=== PATIENT | female | born 1995 | race American Indian/Alaskan Native ===

== ENCOUNTER 2020-11-03 11:34 | Emergency (ER) | payer SELFPAY ==
[2020-11-03] MEDS ORDERED: ONDANSETRON 4 MG ODT TAB PO ONE (12:34)
[2020-11-03] MEDS ORDERED: KETOROLAC 30 MG/1 ML INJ IV ONE (13:23)
[2020-11-03] MEDS ORDERED: SODIUM CHLORIDE 0.9% 1000 ML 1,000 ML IV ONE (13:23)
[2020-11-03] MEDS ORDERED: FAMOTIDINE 20 MG/2 ML INJ IV ONE (13:23)
[2020-11-03 13:33] LABS: Basophils % (Auto) 0.4 % (0.0-1.8); Eosinophils % (Auto) 0.2 % (0.0-4.3); Hematocrit 46.7 % (30.3-42.9); Hemoglobin 15.8 gm/dl (10.1-14.3); Lymphocytes # (Auto) 1.6 K/mm3 (1.2-5.4); Lymphocytes % (Auto) 21.7 % (13.4-35.0); Mean Corpuscular HGB Conc 34 % (30-34); Mean Corpuscular Volume 93 fl (79-97); Monocytes # (Auto) 0.5 K/mm3 (0.0-0.8); Monocytes % (Auto) 6.5 % (0.0-7.3); Platelet Count 209 K/mm3 (140-440); Red Blood Count 4.99 M/mm3 (3.65-5.03); Red Cell Distribution Width 13.7 % (13.2-15.2)
[2020-11-03 13:37] LABS: HCG Qualitative,Urine Negative (Negative)
[2020-11-03 13:38] LABS: Bilirubin,Urine NEG (Negative); Blood,Urine NEG (Negative); Color,Urine Yellow (Yellow); Mucus,Urine FEW /HPF; Protein,Urine <15 mg/dL mg/dL (Negative); Urobilinogen,Urine < 2.0 mg/dL (<2.0)
[2020-11-03 13:49] LABS: Alanine Aminotransferase 18 units/L (7-56); Albumin 4.4 g/dL (3.9-5); Blood Urea Nitrogen 6 mg/dL (7-17); Calcium 9.4 mg/dL (8.4-10.2); Hemolysis Index 10
[2020-11-03] MEDS ORDERED: ONDANSETRON 4 MG/2 ML INJ ONE (13:51)
[2020-11-03 13:53] LABS: BUN/Creatinine Ratio 9
[2020-11-03] MEDS ORDERED: ONDANSETRON 4 MG/2 ML INJ IV ONE (13:57)
--- NOTE | 2020-11-03 14:30 | Emergency Department Report ---
Vomiting/Diarrhea - HPI Chief Complaint: Nausea/Vomiting/Diarrhea Stated Complaint: VOMITING BLOOD Time Seen by Provider: 11/03/20 12:45 Duration: 1 Day Severity: moderate Nausea/Vomiting Severity: None Pain Location: Epigastric Pain Severity: Mild Symptoms: Yes Able to Tolerate Fluids, Yes Recent Unusual Foods, No Watery Diarrhea, No Bloody diarrhea, No Fever, No Recent Untreated Water, No Recent use of Antibiotics, No Family w/ Similar Symptoms, No Contacts w/ Similar Symptoms, No Rash, No Hematuria, No Recent URI Symptoms ED Review of Systems ROS: Stated complaint: VOMITING BLOOD Other details as noted in HPI Comment: All other systems reviewed and negative ED Past Medical Hx - Past Medical History Previous Medical History?: Yes Hx Psychiatric Treatment: (anxiety, ADHD) - Surgical History Past Surgical History?: Yes Additional Surgical History: T&A - Social History Smoking Status: Never Smoker Substance Use Type: Marijuana - Medications Home Medications: Home Medications Medication Instructions Recorded Confirmed Last Taken Type Famotidine [Pepcid] 20 mg PO BID #40 tablet 11/03/20 Unknown Rx Ondansetron [Zofran ODT TAB] 8 mg PO Q8HR #20 tab.rapdis 11/03/20 Unknown Rx Vomiting Diarrhea Exam - Exam General: Vital signs noted. No distress. Alert and acting appropriately. HEENT: Yes Moist Mucous Membranes, No Pharyngeal Erythema, No Pharyngeal Exudates, No Rhinorrhea, No Conjuctival Injection, No Frontal Tenderness, No Maxillary Tenderness Neck: No Adenopathy, No Rigidity Lungs: Yes Clear Lung Sounds, Yes Good Air Exchange, No Wheezes, No Stridor, No Cough, No Nasal Flaring, No Retractions, No Use of Accessory Muscles Heart exam: Regular: Yes, Murmur: No, Tachycardia: No Abdomen: Tenderness: No, Peritoneal Signs: No, Distention: No, Hyperactive Bowel sounds: No Skin exam: Rash: No, Edema: No, Normal turgor: Yes Neurologic: Alert and oriented, no deficits. Musculoskeletal: Unremarkable. ED Course Vital Signs 11/03/20 11/03/20 11:48 14:18 Pulse Rate 62 88 Respiratory 16 18 Rate Blood Pressure 119/76 238/148 [Right] O2 Sat by Pulse 97 98 Oximetry ED Medical Decision Making - Lab Data Result diagrams: 11/03/20 12:38 11/03/20 12:38 Laboratory Last Values WBC 7.2 K/mm3 (4.5-11.0) 11/03/20 12:38 RBC 4.99 M/mm3 (3.65-5.03) 11/03/20 12:38 Hgb 15.8 gm/dl (10.1-14.3) H 11/03/20 12:38 Hct 46.7 % (30.3-42.9) H 11/03/20 12:38 MCV 93 fl (79-97) 11/03/20 12:38 MCH 32 pg (28-32) 11/03/20 12:38 MCHC 34 % (30-34) 11/03/20 12:38 RDW 13.7 % (13.2-15.2) 11/03/20 12:38 Plt Count 209 K/mm3 (140-440) 11/03/20 12:38 Lymph % (Auto) 21.7 % (13.4-35.0) 11/03/20 12:38 [place] % (Auto) 6.5 % (0.0-7.3) 11/03/20 12:38 Eos % (Auto) 0.2 % (0.0-4.3) 11/03/20 12:38 Baso % (Auto) 0.4 % (0.0-1.8) 11/03/20 12:38 Lymph # (Auto) 1.6 K/mm3 (1.2-5.4) 11/03/20 12:38 [place] # (Auto) 0.5 K/mm3 (0.0-0.8) 11/03/20 12:38 Eos # (Auto) 0.0 K/mm3 (0.0-0.4) 11/03/20 12:38 Baso # (Auto) 0.0 K/mm3 (0.0-0.1) 11/03/20 12:38 Seg Neutrophils % 71.2 % (40.0-70.0) H 11/03/20 12:38 Seg Neutrophils # 5.1 K/mm3 (1.8-7.7) 11/03/20 12:38 Sodium 138 mmol/L (137-145) 11/03/20 12:38 Potassium 4.1 mmol/L (3.6-5.0) 11/03/20 12:38 Chloride 102.5 mmol/L (98-107) 11/03/20 12:38 Carbon Dioxide 24 mmol/L (22-30) 11/03/20 12:38 Anion Gap 16 mmol/L 11/03/20 12:38 BUN 6 mg/dL (7-17) L 11/03/20 12:38 Creatinine 0.7 mg/dL (0.6-1.2) 11/03/20 12:38 Estimated GFR > 60 ml/min 11/03/20 12:38 BUN/Creatinine Ratio 9 % 11/03/20 12:38 Glucose 95 mg/dL (65-100) 11/03/20 12:38 Calcium 9.4 mg/dL (8.4-10.2) 11/03/20 12:38 Total Bilirubin 0.30 mg/dL (0.1-1.2) 11/03/20 12:38 AST 17 units/L (5-40) 11/03/20 12:38 ALT 18 units/L (7-56) 11/03/20 12:38 Alkaline Phosphatase 82 units/L (35-129) 11/03/20 12:38 Total Protein 7.1 g/dL (6.3-8.2) 11/03/20 12:38 Albumin 4.4 g/dL (3.9-5) 11/03/20 12:38 Albumin/Globulin Ratio 1.6 % 11/03/20 12:38 Lipase 17 units/L (13-60) 11/03/20 12:38 Urine Color Yellow (Yellow) 11/03/20 13:15 Urine Turbidity Clear (Clear) 11/03/20 13:15 Urine pH 8.0 (5.0-7.0) H 11/03/20 13:15 Ur Specific [place] 1.017 (1.003-1.030) 11/03/20 13:15 Urine Protein <15 mg/dl mg/dL (Negative) 11/03/20 13:15 Urine Glucose (UA) Neg mg/dL (Negative) 11/03/20 13:15 Urine Ketones Neg mg/dL (Negative) 11/03/20 13:15 Urine Blood Neg (Negative) 11/03/20 13:15 Urine Nitrite Neg (Negative) 11/03/20 13:15 Ur Reducing Substances Not Reportable 11/03/20 13:15 Urine Bilirubin Neg (Negative) 11/03/20 13:15 Urine Ictotest Not Reportable 11/03/20 13:15 Urine Urobilinogen < 2.0 mg/dL (<2.0) 11/03/20 13:15 Ur Leukocyte Esterase Neg (Negative) 11/03/20 13:15 Urine WBC (Auto) 1.0 /HPF (0.0-6.0) 11/03/20 13:15 Urine RBC (Auto) 2.0 /HPF (0.0-6.0) 11/03/20 13:15 U Epithel Cells (Auto) 3.0 /HPF (0-13.0) 11/03/20 13:15 Urine Mucus Few /HPF 11/03/20 13:15 Urine HCG, Qual Negative (Negative) 11/03/20 13:15 - Medical Decision Making This 25-year-old female presenting with acute onset of nausea and vomiting. Patient received IV fluids, meds in the ED. Upon reassessment patient reports feeling much better and states she feels 110%. Vomiting was resolved. Discussed follow-up with primary care physician. Discussed alcohol cessation. Discussed soft fluid diet times 1 week. Patient is in no acute distress so respiratory distress. She was on instructions and will follow-up. - Differential Diagnosis Gastritis, gastroenteritis, UTI Critical care attestation.: If time is entered above; I have spent that time in minutes in the direct care of this critically ill patient, excluding procedure time. ED Disposition Clinical Impression: Gastritis, Gastric pain Disposition: DC-01 TO HOME OR SELFCARE Is pt being admited?: No Does the pt Need Aspirin: No Condition: Stable Instructions: Gastritis, Adult, [id number] Additional Instructions: Make sure to follow up with the primary care physician as discussed. Take all your medications as you've been prescribed. If you have any worsening symptoms or develop new symptoms please return to ED immediately. Prescriptions: Famotidine [Pepcid] 20 mg PO BID #40 tablet Ondansetron [Zofran ODT TAB] 8 mg PO Q8HR #20 tab.rapdis Referrals: PRIMARY CARE, [Primary Care Provider] - 3-[address] [facility] [place] [Outside] - 3-5 Days [facility] [Outside] - 3-5 Days Forms: Work/School Release Form(ED) Time of Disposition: 15:13
[2020-11-03 15:15] VITALS: BP 119/76
== END 2020-11-03 15:26 | disposition home or self-care (01) ==
LOC: ED 11:34
DX: K29.70 Gastritis, unspecified, without bleeding (principal); R10.9 Unspecified abdominal pain; F41.9 Anxiety disorder, unspecified; F12.90 Cannabis use, unspecified, uncomplicated; Z79.899 Other long term (current) drug therapy; Z98.890 Other specified postprocedural states
CPT/HCPCS: 36415; 80053; 81001; 81025; 83690; 85025; 96361; 96374; 96375; 99283; J1885; J2405; J7030; Q0162

== ENCOUNTER 2021-03-11 06:25 | Emergency (ER) | payer SELFPAY ==
[2021-03-11 07:42] VITALS: BP 123/74
[2021-03-11] MEDS ORDERED: DICYCLOMINE 20 MG TAB PO ONE (07:55)
[2021-03-11] MEDS ORDERED: diphenhydrAMINE 50 MG/ML VIAL IV ONE (07:55)
[2021-03-11] MEDS ORDERED: FAMOTIDINE 20 MG/2 ML INJ IV ONE (07:55)
[2021-03-11] MEDS ORDERED: METOCLOPRAMIDE 10 MG/2 ML INJ IV ONE (07:55)
[2021-03-11] MEDS ORDERED: SODIUM CHLORIDE 0.9% 1000 ML 1,000 ML IV ONE (07:55)
[2021-03-11 08:35] LABS: Basophils % (Auto) 0.5 % (0.0-1.8); Eosinophils % (Auto) 0.2 % (0.0-4.3); Hematocrit 44.2 % (30.3-42.9); Hemoglobin 15.3 gm/dl (10.1-14.3); Lymphocytes # (Auto) 1.4 K/mm3 (1.2-5.4); Lymphocytes % (Auto) 17.6 % (13.4-35.0); Mean Corpuscular HGB Conc 35 % (30-34); Mean Corpuscular Volume 93 fl (79-97); Monocytes # (Auto) 0.5 K/mm3 (0.0-0.8); Monocytes % (Auto) 6.1 % (0.0-7.3); Platelet Count 215 K/mm3 (140-440); Red Blood Count 4.75 M/mm3 (3.65-5.03); Red Cell Distribution Width 13.2 % (13.2-15.2)
[2021-03-11 08:56] LABS: Alanine Aminotransferase 19 units/L (7-56); Albumin 4.6 g/dL (3.9-5); BUN/Creatinine Ratio 11; Blood Urea Nitrogen 8 mg/dL (7-17); Hemolysis Index 12
--- NOTE | 2021-03-11 09:11 | Emergency Department Report ---
ED Abdominal Pain HPI - General Chief Complaint: Abdominal Pain Stated Complaint: N/V X 3HOURS Time Seen by Provider: 03/11/21 07:42 Source: patient, EMS Mode of arrival: Ambulatory Limitations: No Limitations - History of Present Illness Initial Comments: This is a 25-year-old female nontoxic, well nourished in appearance, no acute signs of distress presents to the ED with c/o of nausea and vomiting and abdominal pain several days. Patient describes vomiting as food content and yellow gastric acid. Patient describes abdominal pain as cramping and aching with level of 8/10 diffuse. Patient denies chest pain, short of breath, fever, hemoptysis, blood in stool, chills, headache, stiff neck, numbness or tingling. Patient denies any diarrhea or constipation. Denies any blood in stool. Patient denies any recent travels. Patient denies any drug allergies or significant past medical history. MD Complaint: abdominal pain -: days(s) Location: diffuse Radiation: none Migration to: no migration Severity: mild Severity scale (0 -10): 8 Quality: aching Consistency: constant Improves With: nothing Worsens With: nothing Associated Symptoms: nausea, vomiting. denies: diarrhea, fever, chills, constipation, dysuria, hematemesis, hematochezia, melena, hematuria, anorexia, syncope - Related Data Previous Rx's Medication Instructions Recorded Last Taken Type Famotidine [Pepcid] 20 mg PO BID #40 tablet 11/03/20 Unknown Rx Ondansetron [Zofran ODT TAB] 8 mg PO Q8HR #20 tab.rapdis 11/03/20 Unknown Rx Allergies Allergy/AdvReac Type Severity Reaction Status Date / Time No Known Allergies Allergy Verified 11/03/20 14:04 ED Review of Systems ROS: Stated complaint: N/V X 3HOURS Other details as noted in HPI Comment: All other systems reviewed and negative Constitutional: denies: chills, fever Eyes: denies: eye pain, eye discharge, vision change ENT: denies: ear pain, throat pain Respiratory: denies: cough, shortness of breath, wheezing Cardiovascular: denies: chest pain, palpitations Endocrine: no symptoms reported Gastrointestinal: abdominal pain, nausea, vomiting. denies: diarrhea, constipation, hematemesis, melena, hematochezia Genitourinary: denies: urgency, dysuria, discharge Musculoskeletal: denies: back pain, joint swelling, arthralgia Skin: denies: rash, lesions Neurological: denies: headache, weakness, paresthesias Psychiatric: denies: anxiety, depression Hematological/Lymphatic: denies: easy bleeding, easy bruising ED Past Medical Hx - Past Medical History Previous Medical History?: Yes Hx Psychiatric Treatment: (anxiety, ADHD) - Surgical History Past Surgical History?: Yes Additional Surgical History: T&A - Social History Smoking Status: Current Every Day Smoker Substance Use Type: Marijuana - Medications Home Medications: Home Medications Medication Instructions Recorded Confirmed Last Taken Type Famotidine [Pepcid] 20 mg PO BID #40 tablet 11/03/20 Unknown Rx Ondansetron [Zofran ODT TAB] 8 mg PO Q8HR #20 tab.rapdis 11/03/20 Unknown Rx ED Physical Exam - General Limitations: No Limitations General appearance: alert, in no apparent distress - Head Head exam: Present: atraumatic, normocephalic - Eye Eye exam: Present: normal appearance - Neck Neck exam: Present: normal inspection, full ROM. Absent: lymphadenopathy - Respiratory Respiratory exam: Present: normal lung sounds bilaterally. Absent: respiratory distress, wheezes, rales, rhonchi, stridor, chest wall tenderness, accessory muscle use, decreased breath sounds, prolonged expiratory - Cardiovascular Cardiovascular Exam: Present: regular rate, normal rhythm, normal heart sounds. Absent: bradycardia, tachycardia, irregular rhythm, systolic murmur, diastolic murmur, rubs, gallop - GI/Abdominal GI/Abdominal exam: Present: soft, tenderness (Diffuse), normal bowel sounds. Absent: distended, guarding, rebound, rigid, diminished bowel sounds - Extremities Exam Extremities exam: Present: normal inspection, full ROM - Back Exam Back exam: Present: normal inspection, full ROM. Absent: tenderness, CVA tenderness (R), CVA tenderness (L), muscle spasm, paraspinal tenderness, vert ebral tenderness, rash noted - Neurological Exam Neurological exam: Present: alert, oriented X3, normal gait - Psychiatric Psychiatric exam: Present: normal affect, normal mood - Skin Skin exam: Present: warm, dry, intact, normal color. Absent: rash ED Course Vital Signs 03/11/21 07:36 Temperature 98.1 F Pulse Rate 63 Respiratory 16 Rate Blood Pressure 123/74 O2 Sat by Pulse 100 Oximetry - Reevaluation(s) Reevaluation #1: 03/11/21 09:10 Patient is speaking in full sentences with no signs of distress noted. ED Medical Decision Making - Lab Data Result diagrams: 03/11/21 08:07 03/11/21 08:07 Lab Results 03/11/21 03/11/21 03/11/21 Range/Units 08:07 08:07 08:07 WBC 8.1 (4.5-11.0) K/mm3 RBC 4.75 (3.65-5.03) M/mm3 Hgb 15.3 H (10.1-14.3) gm/dl Hct 44.2 H (30.3-42.9) % MCV 93 (79-97) fl MCH 32 (28-32) pg MCHC 35 H (30-34) % RDW 13.2 (13.2-15.2) % Plt Count 215 (140-440) K/mm3 Lymph % (Auto) 17.6 (13.4-35.0) % [place] % (Auto) 6.1 (0.0-7.3) % Eos % (Auto) 0.2 (0.0-4.3) % Baso % (Auto) 0.5 (0.0-1.8) % Lymph # (Auto) 1.4 (1.2-5.4) K/mm3 [place] # (Auto) 0.5 (0.0-0.8) K/mm3 Eos # (Auto) 0.0 (0.0-0.4) K/mm3 Baso # (Auto) 0.0 (0.0-0.1) K/mm3 Seg Neutrophils % 75.6 H (40.0-70.0) % Seg Neutrophils # 6.1 (1.8-7.7) K/mm3 Sodium 141 (137-145) mmol/L Potassium 3.8 (3.6-5.0) mmol/L Chloride 105.4 (98-107) mmol/L Carbon Dioxide 28 (22-30) mmol/L Anion Gap 11 mmol/L BUN 8 (7-17) mg/dL Creatinine 0.7 (0.6-1.2) mg/dL Estimated GFR > 60 ml/min BUN/Creatinine Ratio 11 % Glucose 107 H (65-100) mg/dL Calcium 10.0 (8.4-10.2) mg/dL Total Bilirubin 0.30 (0.1-1.2) mg/dL AST 17 (5-40) units/L ALT 19 (7-56) units/L Alkaline Phosphatase 81 (35-129) units/L Total Protein 7.9 (6.3-8.2) g/dL Albumin 4.6 (3.9-5) g/dL Albumin/Globulin Ratio 1.4 % Lipase 23 (13-60) units/L HCG, Qual Negative (Negative) - Medical Decision Making This is a 25-year-old female that presents with abdominal pain with nausea vomiting. Patient is stable and was examined by me. Labs has been obtained. Patient received medical treatment in ER which she stated symptoms has resolved and subsided. A CT scan has been ordered but patient stated she needs to leave and signed AGAINST MEDICAL ADVICE. Patient was instructed and educated of my concerns and if not treated and probably diagnose serious complications such as disability, worsening conditions and or can occur but patient still refused and sign against medical director. At time of signing AMA, the patient does not seem toxic or ill in appearance. No acute signs of distress noted. No further questions noted by the patient. Critical care attestation.: If time is entered above; I have spent that time in minutes in the direct care of this critically ill patient, excluding procedure time. ED Disposition Clinical Impression: Abdominal pain Qualifiers: Abdominal location: generalized Qualified Code(s): R10.84 - Generalized abdominal pain Nausea & vomiting Qualifiers: Vomiting type: unspecified Vomiting Intractability: non-intractable Qualified Code(s): R11.2 - Nausea with vomiting, unspecified Disposition: 07 LEFT AGAINST MEDICAL ADVICE Is pt being admited?: No Does the pt Need Aspirin: No Condition: Undetermined Instructions: Abdominal Pain (ED), Nausea and Vomiting, Adult, [id number], Abdominal Pain, Adult, [id number] Additional Instructions: Follow-up with a primary care doctor as soon as possible or if symptoms worsen and continue return to emergency room as soon as possible. Your condition may be serious as instructed and educated today in the ER but you decided to leave AGAINST MEDICAL ADVICE. It is highly recommended to see a provider as soon as possible to rule out serious complications that was described to you during your ED stay. Referrals: KAREL CARBALLO MD [Staff Physician] - [facility] [Primary Care Provider] - [facility] Forms: AMA Form Time of Disposition: 09:09
== END 2021-03-11 09:08 | disposition left against medical advice (07) ==
LOC: ED 06:25
DX: R10.84 Generalized abdominal pain (principal); R11.2 Nausea with vomiting, unspecified; F41.9 Anxiety disorder, unspecified; F17.200 Nicotine dependence, unspecified, uncomplicated; F12.90 Cannabis use, unspecified, uncomplicated; Z79.899 Other long term (current) drug therapy
CPT/HCPCS: 36415; 80053; 83690; 84703; 85025; 96361; 96374; 96375; 99284; J1200; J2765; J7030

== ENCOUNTER 2021-06-15 09:50 | Emergency (ER) | payer SELFPAY ==
[2021-06-15 10:05] VITALS: BP 123/72
--- NOTE | 2021-06-15 11:32 | Emergency Department Report ---
HPI - General Chief Complaint: Vaginal Bleeding Time Seen by Provider: 06/15/21 10:49 - HPI HPI: 25-year-old -[place] female presents to the emergency department with a complaint of having a few days of some mild vaginal bleeding and intermittent pelvic cramping. She took a home test that was positive. With this she is . She has not taken anything for symptoms prior to presentation today. She denies any other past medical history. She does not have any [employer]. She denies any fever, lower extremity swelling, chest pain, shortness of breath, vaginal discharge, dysuria. ED Past Medical Hx - Past Medical History Hx Psychiatric Treatment: (anxiety, ADHD) - Surgical History Additional Surgical History: T&A - Social History Smoking Status: Current Some Day Smoker - Medications Home Medications: Home Medications Medication Instructions Recorded Confirmed Last Taken Type Famotidine [Pepcid] 20 mg PO BID #40 tablet 11/03/20 Unknown Rx Ondansetron [Zofran ODT TAB] 8 mg PO Q8HR #20 tab.rapdis 11/03/20 Unknown Rx Vit-Fe Fumar-FA [ 1 tab PO QDAY #30 tablet 06/15/21 Unknown Rx Vitamin] ED Review of Systems ROS: Stated complaint: VAGINAL BLEEDING Other details as noted in HPI Comment: All other systems reviewed and negative Constitutional: denies: chills, fever Eyes: denies: eye pain, vision change ENT: denies: ear pain, throat pain Respiratory: denies: cough, shortness of breath Cardiovascular: denies: chest pain, palpitations Gastrointestinal: denies: abdominal pain, vomiting Genitourinary: other (Mild intermittent pelvic cramping, vaginal bleeding). denies: dysuria, discharge Musculoskeletal: denies: back pain, arthralgia Skin: denies: rash, lesions Neurological: denies: headache, weakness Physical Exam - Physical Exam Vital Signs: Vital Signs 06/15/21 06/15/21 10:05 10:36 Temperature 98.3 F Pulse Rate 65 Respiratory 17 Rate Blood Pressure 123/72 O2 Sat by Pulse 100 98 Oximetry Physical Exam: GENERAL: The patient is well-developed well-nourished. HENT: Normocephalic. Atraumatic. Patient has moist mucous membranes. EYES: Extraocular motions are intact. NECK: Supple. Trachea is midline. CHEST/LUNGS: Clear to auscultation. There is no respiratory distress noted. HEART/CARDIOVASCULAR: Regular. There is no tachycardia. There is no murmur. ABDOMEN: Abdomen is soft, nontender. Patient has normal bowel sounds. SKIN: Skin is warm and dry. NEURO: The patient is awake, alert, and oriented. The patient is cooperative. The patient has no focal neurologic deficits. Normal speech. MUSCULOSKELETAL: There is no tenderness or deformity. There is no limitation range of motion. ED Course Vital Signs 06/15/21 06/15/21 10:05 10:36 Temperature 98.3 F Pulse Rate 65 Respiratory 17 Rate Blood Pressure 123/72 O2 Sat by Pulse 100 98 Oximetry ED Medical Decision Making - Lab Data Result diagrams: 06/15/21 11:05 06/15/21 11:05 Lab Results 06/15/21 06/15/21 06/15/21 Range/Units 11:05 11:05 11:05 WBC 6.2 (4.5-11.0) K/mm3 RBC 4.73 (3.65-5.03) M/mm3 Hgb 14.5 H (10.1-14.3) gm/dl Hct 43.5 H (30.3-42.9) % MCV 92 (79-97) fl MCH 31 (28-32) pg MCHC 33 (30-34) % RDW 13.1 L (13.2-15.2) % Plt Count 197 (140-440) K/mm3 Lymph % (Auto) 37.4 H (13.4-35.0) % [place] % (Auto) 9.6 H (0.0-7.3) % Eos % (Auto) 1.4 (0.0-4.3) % Baso % (Auto) 0.4 (0.0-1.8) % Lymph # (Auto) 2.3 (1.2-5.4) K/mm3 [place] # (Auto) 0.6 (0.0-0.8) K/mm3 Eos # (Auto) 0.1 (0.0-0.4) K/mm3 Baso # (Auto) 0.0 (0.0-0.1) K/mm3 Seg Neutrophils % 51.2 (40.0-70.0) % Seg Neutrophils # 3.2 (1.8-7.7) K/mm3 Sodium 135 L (137-145) mmol/L Potassium 3.9 (3.6-5.0) mmol/L Chloride 102.1 (98-107) mmol/L Carbon Dioxide 21 L (22-30) mmol/L Anion Gap 16 mmol/L BUN 6 L (7-17) mg/dL Creatinine 0.5 L (0.6-1.2) mg/dL Estimated GFR > 60 ml/min BUN/Creatinine Ratio 12 % Glucose 79 (65-100) mg/dL Calcium 9.2 (8.4-10.2) mg/dL HCG, Quant 85723 H (0-4) mIU/mL Blood Type Ord Rhogam Gestat Weeks WEEKS 06/15/21 Range/Units 11:05 WBC (4.5-11.0) K/mm3 RBC (3.65-5.03) M/mm3 Hgb (10.1-14.3) gm/dl Hct (30.3-42.9) % MCV (79-97) fl MCH (28-32) pg MCHC (30-34) % RDW (13.2-15.2) % Plt Count (140-440) K/mm3 Lymph % (Auto) (13.4-35.0) % [place] % (Auto) (0.0-7.3) % Eos % (Auto) (0.0-4.3) % Baso % (Auto) (0.0-1.8) % Lymph # (Auto) (1.2-5.4) K/mm3 [place] # (Auto) (0.0-0.8) K/mm3 Eos # (Auto) (0.0-0.4) K/mm3 Baso # (Auto) (0.0-0.1) K/mm3 Seg Neutrophils % (40.0-70.0) % Seg Neutrophils # (1.8-7.7) K/mm3 Sodium (137-145) mmol/L Potassium (3.6-5.0) mmol/L Chloride (98-107) mmol/L Carbon Dioxide (22-30) mmol/L Anion Gap mmol/L BUN (7-17) mg/dL Creatinine (0.6-1.2) mg/dL Estimated GFR ml/min BUN/Creatinine Ratio % Glucose (65-100) mg/dL Calcium (8.4-10.2) mg/dL HCG, Quant (0-4) mIU/mL Blood Type O POSITIVE Ord Rhogam Gestat Weeks Rh pos WEEKS - Radiology Data Radiology results: report reviewed US OB transvaginal, US OB <= 14 weeks fetus INDICATION / CLINICAL INFORMATION: , pelvic pain, vaginal bleeding. TECHNIQUE: Transabdominal and Transvaginal. COMPARISON: None available. FINDINGS: UTERUS: Appears within normal limits. Small subchorionic hemorrhage, measuring 4.5 x 1.2 cm. GESTATIONAL SAC: Well-defined oval shape and intrauterine in location. YOLK SAC: No significant abnormality. EMBRYO/FETUS: - [place] Length = 1.6 cm - Heart Rate, beats per minute (if present) = 154 beats per minute ADNEXA: No significant abnormality. FREE FLUID: None. ADDITIONAL FINDINGS: None. IMPRESSION: 1. Single, living intrauterine with estimated sonographic age of 8 weeks 0 days. 2. Small subchorionic hemorrhage. - Medical Decision Making This patient presents to the emergency department with a recent positive home test, and 2 days of some mild vaginal bleeding. She does not appear in any distress. Abdomen is soft, nondistended and nontoxic in appearance. Labs shows a beta-hCG of about 87,000. hemoglobin stable at 14.5 and normal metabolic panel. Blood type is O+ and therefore the patient does not need the ED RhoGam shot. Ultrasound shows a live intrauterine at about 8 weeks and a small subchorionic hemorrhage. Vital signs reassuring including being afebrile. I spoke to the patient regarding all the lab and imaging results. She will be placed on vitamins. She has been given outpatient referrals for [employer] [facility]. She will return to the emergency department with any worsening of her symptoms or with any acute distress. Critical Care Time: No Critical care attestation.: If time is entered above; I have spent that time in minutes in the direct care of this critically ill patient, excluding procedure time. ED Disposition Clinical Impression: Qualifiers: Weeks of gestation: 8 weeks Qualified Code(s): Z3A.08 - 8 weeks gestation of Subchorionic hematoma in first trimester Qualifiers: Fetus number: single or unspecified fetus Qualified Code(s): O41.8X10 - Other specified disorders of amniotic fluid and membranes, first trimester, not applicable or unspecified; O46.8X1 - Other antepartum hemorrhage, first trimester Disposition: 01 HOME / SELF CARE / HOMELESS Is pt being admited?: No Condition: Stable Instructions: Vaginal Bleeding During , First Trimester, First Trimester of , [id number] Additional Instructions: Please follow-up with an [facility]LE [facility] in the next few days. I am giving you a referral for multiple local [facility] groups. I am starting you on vitamins. Return to the emergency department with any worsening of your symptoms, new or concerning symptoms not addressed during this current emergency department visit, or with any acute distress. Prescriptions: Vit-Fe Fumar-FA [ Vitamin] 1 tab PO QDAY #30 tablet Referrals: [facility] [Provider Group] - 3-5 Days [facility] [Provider [facility]] - 3-5 Days [facility] [Provider Group] - 3-5 Days Time of Disposition: 15:35
[2021-06-15 12:41] LABS: Basophils % (Auto) 0.4 % (0.0-1.8); Eosinophils # (Auto) 0.1 K/mm3 (0.0-0.4); Eosinophils % (Auto) 1.4 % (0.0-4.3); Hematocrit 43.5 % (30.3-42.9); Hemoglobin 14.5 gm/dl (10.1-14.3); Lymphocytes # (Auto) 2.3 K/mm3 (1.2-5.4); Lymphocytes % (Auto) 37.4 % (13.4-35.0); Mean Corpuscular HGB Conc 33 % (30-34); Mean Corpuscular Volume 92 fl (79-97); Monocytes # (Auto) 0.6 K/mm3 (0.0-0.8); Monocytes % (Auto) 9.6 % (0.0-7.3); Platelet Count 197 K/mm3 (140-440); Red Blood Count 4.73 M/mm3 (3.65-5.03); Red Cell Distribution Width 13.1 % (13.2-15.2)
[2021-06-15 12:57] LABS: Blood Urea Nitrogen 6 mg/dL (7-17); Calcium 9.2 mg/dL (8.4-10.2); Hemolysis Index 5
[2021-06-15 13:05] LABS: BUN/Creatinine Ratio 12
--- NOTE | 2021-06-15 15:27 | Ultrasound Report ---
US OB transvaginal, US OB <= 14 weeks fetus INDICATION / CLINICAL INFORMATION: , pelvic pain, vaginal bleeding. TECHNIQUE: Transabdominal and Transvaginal. COMPARISON: None available. FINDINGS: UTERUS: Appears within normal limits. Small subchorionic hemorrhage, measuring 4.5 x 1.2 cm. GESTATIONAL SAC: Well-defined oval shape and intrauterine in location. YOLK SAC: No significant abnormality. EMBRYO/FETUS: - [place]-Rump Length = 1.6 cm - Heart Rate, beats per minute (if present) = 154 beats per minute ADNEXA: No significant abnormality. FREE FLUID: None. ADDITIONAL FINDINGS: None. IMPRESSION: 1. Single, living intrauterine with estimated sonographic age of 8 weeks 0 days. 2. Small subchorionic hemorrhage. Signer Name: Pritesh Villasenor MD Signed: 06/15/2021 3:23 PM Workstation Name: [id number]
--- NOTE | 2021-06-15 15:27 | Ultrasound Report ---
US OB transvaginal, US OB <= 14 weeks fetus INDICATION / CLINICAL INFORMATION: , pelvic pain, vaginal bleeding. TECHNIQUE: Transabdominal and Transvaginal. COMPARISON: None available. FINDINGS: UTERUS: Appears within normal limits. Small subchorionic hemorrhage, measuring 4.5 x 1.2 cm. GESTATIONAL SAC: Well-defined oval shape and intrauterine in location. YOLK SAC: No significant abnormality. EMBRYO/FETUS: - [place]-Rump Length = 1.6 cm - Heart Rate, beats per minute (if present) = 154 beats per minute ADNEXA: No significant abnormality. FREE FLUID: None. ADDITIONAL FINDINGS: None. IMPRESSION: 1. Single, living intrauterine with estimated sonographic age of 8 weeks 0 days. 2. Small subchorionic hemorrhage. Signer Name: Pritesh Villasenor MD Signed: 06/15/2021 3:23 PM Workstation Name: [id number]
== END 2021-06-15 16:04 | disposition home or self-care (01) ==
LOC: ED 09:50
DX: O20.8 Other hemorrhage in early pregnancy (principal); O99.341 Other mental disorders complicating pregnancy, first trimester; F41.9 Anxiety disorder, unspecified; F17.200 Nicotine dependence, unspecified, uncomplicated; Z3A.08 8 weeks gestation of pregnancy
CPT/HCPCS: 36415; 76801; 76817; 80048; 84702; 85025; 86900; 86901; 99284

== ENCOUNTER 2021-09-15 08:20 | Inpatient (IN) | payer MEDICAID ==
[2021-09-15] MEDS ORDERED: LACTATED RINGERS 1,000 ML IV ONE (09:00)
[2021-09-15] MEDS: TERBUTALINE 1 MG/1 ML INJ SUB-Q PRN ×2 (09:24→13:54)
[2021-09-15 09:25] LABS: Bilirubin,Urine NEG (Negative); Blood,Urine SM (Negative); Color,Urine Yellow (Yellow); Mucus,Urine FEW /HPF; Protein,Urine <15 mg/dL mg/dL (Negative); Urobilinogen,Urine < 2.0 mg/dL (<2.0)
--- NOTE | 2021-09-15 10:56 | History and Physical Report ---
History of Present Illness Date of examination: 09/15/21 Date of admission: 09/15/21 Chief complaint: contractions Past History Past Medical History: no pertinent history Past Surgical History: no surgical history Social history: no significant social history - Obstetrical History Expected Date of Delivery: 01/23/22 Actual Gestation: 21 Week(s) 3 Day(s) : 2 Spontaneous Abortions: 1 Medications and Allergies Allergies Allergy/AdvReac Type Severity Reaction Status Date / Time No Known Allergies Allergy Verified 06/15/21 10:02 Home Medications Medication Instructions Recorded Confirmed Last Taken Type Famotidine [Pepcid] 20 mg PO BID #40 tablet 11/03/20 Unknown Rx Ondansetron [Zofran ODT TAB] 8 mg PO Q8HR #20 tab.rapdis 11/03/20 Unknown Rx Vit-Fe Fumar-FA [ 1 tab PO QDAY #30 tablet 06/15/21 Unknown Rx Vitamin] Active Meds: Active Medications Acetaminophen (Acetaminophen 325 Mg Tab) 650 mg PO Q4H PRN PRN Reason: Pain MILD(1-3)/Fever >100.5/MARTIN Ceftriaxone Sodium (Ceftriaxone 1 Gm Inj) 500 gm IM ONCE ONE; Protocol Stop: 09/15/21 10:50 Docusate Sodium (Docusate Sodium 100 Mg Cap) 100 mg PO Q12H PRN PRN Reason: Constipation Cefazolin Sodium (Ancef/Sterile Water 2 Gm/20 Ml) 2 gm in 20 mls @ 80 mls/hr IV ONCE ONE; Protocol Stop: 09/15/21 11:14 Last Admin: 09/15/21 10:40 Dose: 80 mls/hr Azithromycin (Zithromax/Ns) 500 mg in 250 mls @ 250 mls/hr IV Q24H YAQUELIN Stop: 09/16/21 11:59 Lidocaine (Lidocaine-Mpf (1%) 10 Mg/1 Ml Vial 5 Ml) 2 ml INFILTRATI ONCE ONE Stop: 09/15/21 11:51 Metronidazole (Metronidazole 500 Mg Tab) 500 mg PO Q12HR YAQUELIN; Protocol Multivitamins/Iron/Calcium ( Hlk29-Iw Fumarate-Folic Acid Vit Tab) 1 each PO QDAY YAQUELIN Terbutaline Sulfate (Terbutaline 1 Mg/1 Ml Inj) 0.25 mg SUB-Q Q30MIN PRN PRN Reason: contractions Last Admin: 09/15/21 09:24 Dose: 0.25 mg - Vital Signs Vital signs: Vital Signs Pulse Pulse Ox 85 99 09/15/21 08:51 09/15/21 08:51 Temp Pulse Resp BP Pulse Ox 98 F 114 H 20 124/80 98 09/15/21 08:57 09/15/21 10:36 09/15/21 08:57 09/15/21 10:27 09/15/21 10:36 - Physical Exam Breasts: Positive: deferred Cardiovascular: Regular rate Abdomen: Positive: normal appearance, soft, normal bowel sounds Genitourinary (Female): Positive: normal external genitalia, normal perenium Vagina: Positive: normal moisture Uterus: Positive: enlarged Anus/Rectum: Positive: normal perianal skin Deep Tendon Reflex Grade: Normal +2 - Obstetrical FHR: auscultation normal Cervical Effacement Percentage: 50 station: -2 Results Result Diagrams: 09/15/21 11:16 Abnormal lab results 09/15/21 Range/Units 08:39 Urine WBC (Auto) 66.0 H (0.0-6.0) /HPF U Epithel Cells (Auto) 15.0 H (0-13.0) /HPF All other labs normal. Assessment and Plan admission abx APA consult OB US EFW and presentation RASHIDA Segura MD
[2021-09-15] MEDS ORDERED: ceFAZolin/Water 2 GM/20 ML 2 GM/20 ML SYRINGE IV ONE (11:00)
[2021-09-15] MEDS ORDERED: ACETAMINOPHEN 325 MG TAB PO PRN ×2 (11:00→22:39)
[2021-09-15] MEDS: metroNIDAZOLE 500 MG TAB PO SCH (11:12)
[2021-09-15] MEDS ORDERED: LIDOCAINE-MPF (1%) 10 MG/1 ML VIAL 5 ML INFILTRATI ONE (11:50)
[2021-09-15] MEDS ORDERED: DOCUSATE SODIUM 100 MG CAP PO PRN (12:00)
[2021-09-15 12:08] LABS: Basophils % (Auto) 0.1 % (0.0-1.8); Eosinophils % (Auto) 0.3 % (0.0-4.3); Hematocrit 31.8 % (30.3-42.9); Hemoglobin 11.1 gm/dl (10.1-14.3); Lymphocytes # (Auto) 1.7 K/mm3 (1.2-5.4); Lymphocytes % (Auto) 16.4 % (13.4-35.0); Mean Corpuscular HGB Conc 35 % (30-34); Mean Corpuscular Volume 92 fl (79-97); Monocytes # (Auto) 0.9 K/mm3 (0.0-0.8); Monocytes % (Auto) 8.2 % (0.0-7.3); Platelet Count 198 K/mm3 (140-440); Red Blood Count 3.44 M/mm3 (3.65-5.03); Red Cell Distribution Width 13.2 % (13.2-15.2)
[2021-09-15 12:19] LABS: Amphetamine Screen,Urine Negative; Benzodiazepines Screen,Urine Negative; Cocaine Screen,Urine Negative; Methadone Screen,Urine Negative; Opiate Screen,Urine Negative
[2021-09-15] MEDS: AZITHROMYCIN/NS 500 MG/250 ML 500 MG/250 ML BAG IV SCH (12:34)
[2021-09-15 12:42] LABS: Cannabinoid Screen,Urine Positive
[2021-09-15] MEDS ORDERED: fentaNYL 100 MCG/2 ML INJ ONE (15:28)
--- NOTE | 2021-09-15 15:30 | Progress Note ---
Subjective - Subjective Date of service: 09/15/21 Interval history: /-2 marisol ~5 minutes Inevitable AB pain meds DC monitoring comfort measures Swapna Segura MD Objective - Vital Signs Vital Signs: Vital Signs - 12hr 09/15/21 09/15/21 09/15/21 08:51 08:53 08:56 Temperature Pulse Rate 85 85 97 H Respiratory Rate Blood Pressure 130/73 O2 Sat by Pulse 99 100 Oximetry 09/15/21 09/15/21 09/15/21 08:57 09:01 09:06 Temperature 98 F Pulse Rate 92 H 99 H Respiratory 20 Rate Blood Pressure O2 Sat by Pulse 99 97 Oximetry 09/15/21 09/15/21 09/15/21 09:07 09:11 09:16 Temperature Pulse Rate 85 97 H 87 Respiratory Rate Blood Pressure 108/61 O2 Sat by Pulse 100 100 Oximetry 09/15/21 09/15/21 09/15/21 09:21 09:23 09:26 Temperature Pulse Rate 102 H 103 H 92 H Respiratory Rate Blood Pressure O2 Sat by Pulse 99 92 99 Oximetry 09/15/21 09/15/21 09/15/21 09:27 09:31 09:36 Temperature Pulse Rate 96 H 103 H 98 H Respiratory Rate Blood Pressure 119/57 O2 Sat by Pulse 98 100 Oximetry 09/15/21 09/15/21 09/15/21 09:41 09:44 09:46 Temperature Pulse Rate 98 H 112 H 98 H Respiratory Rate Blood Pressure O2 Sat by Pulse 100 86 100 Oximetry 09/15/21 09/15/21 09/15/21 09:51 09:56 09:57 Temperature Pulse Rate 110 H 110 H 106 H Respiratory Rate Blood Pressure 121/71 O2 Sat by Pulse 100 100 Oximetry 09/15/21 09/15/21 09/15/21 10:01 10:06 10:11 Temperature Pulse Rate 103 H 85 109 H Respiratory Rate Blood Pressure O2 Sat by Pulse 100 100 98 Oximetry 09/15/21 09/15/21 09/15/21 10:16 10:21 10:26 Temperature Pulse Rate 109 H 123 H 107 H Respiratory Rate Blood Pressure O2 Sat by Pulse 96 99 99 Oximetry 09/15/21 09/15/21 09/15/21 10:27 10:31 10:36 Temperature Pulse Rate 117 H 114 H 114 H Respiratory Rate Blood Pressure 124/80 O2 Sat by Pulse 98 98 Oximetry 09/15/21 09/15/21 09/15/21 11:33 11:34 11:37 Temperature 98.3 F Pulse Rate 96 H 90 Respiratory Rate Blood Pressure 116/62 O2 Sat by Pulse 99 Oximetry 09/15/21 09/15/21 09/15/21 11:38 11:43 11:48 Temperature Pulse Rate 94 H 107 H 110 H Respiratory Rate Blood Pressure O2 Sat by Pulse 99 99 99 Oximetry 09/15/21 09/15/21 09/15/21 11:53 11:58 12:03 Temperature Pulse Rate 86 86 104 H Respiratory Rate Blood Pressure O2 Sat by Pulse 99 99 100 Oximetry 09/15/21 09/15/21 09/15/21 12:08 12:13 12:18 Temperature Pulse Rate 101 H 106 H 102 H Respiratory Rate Blood Pressure O2 Sat by Pulse 99 98 99 Oximetry 09/15/21 09/15/21 09/15/21 12:23 12:28 12:33 Temperature Pulse Rate 106 H 104 H 104 H Respiratory Rate Blood Pressure O2 Sat by Pulse 99 100 100 Oximetry 09/15/21 09/15/21 09/15/21 12:44 12:49 12:54 Temperature Pulse Rate 100 H 125 H 102 H Respiratory Rate Blood Pressure O2 Sat by Pulse 97 100 98 Oximetry 09/15/21 09/15/21 09/15/21 12:59 13:04 13:09 Temperature Pulse Rate 103 H 111 H 105 H Respiratory Rate Blood Pressure O2 Sat by Pulse 98 98 99 Oximetry 09/15/21 09/15/21 09/15/21 13:14 13:19 13:24 Temperature Pulse Rate 112 H 114 H 104 H Respiratory Rate Blood Pressure O2 Sat by Pulse 97 97 100 Oximetry 09/15/21 09/15/21 09/15/21 13:29 13:34 13:39 Temperature Pulse Rate 112 H 103 H 104 H Respiratory Rate Blood Pressure O2 Sat by Pulse 100 95 96 Oximetry 09/15/21 09/15/21 09/15/21 13:44 13:49 13:54 Temperature Pulse Rate 100 H 119 H 106 H Respiratory Rate Blood Pressure O2 Sat by Pulse 95 97 96 Oximetry 09/15/21 09/15/21 09/15/21 13:55 13:59 14:00 Temperature Pulse Rate 107 H 111 H 123 H Respiratory Rate Blood Pressure O2 Sat by Pulse 94 96 94 Oximetry 09/15/21 09/15/21 09/15/21 14:04 14:09 14:14 Temperature Pulse Rate 134 H 124 H 124 H Respiratory Rate Blood Pressure O2 Sat by Pulse 100 100 99 Oximetry 09/15/21 09/15/21 09/15/21 14:19 14:24 14:29 Temperature Pulse Rate 120 H 134 H 120 H Respiratory Rate Blood Pressure O2 Sat by Pulse 98 96 97 Oximetry 09/15/21 09/15/21 09/15/21 14:34 14:35 14:39 Temperature Pulse Rate 129 H 136 H 134 H Respiratory Rate Blood Pressure O2 Sat by Pulse 96 94 97 Oximetry 09/15/21 09/15/21 09/15/21 14:44 14:49 14:54 Temperature Pulse Rate 126 H 120 H 113 H Respiratory Rate Blood Pressure O2 Sat by Pulse 98 100 99 Oximetry 09/15/21 09/15/21 09/15/21 14:59 15:08 15:13 Temperature Pulse Rate 118 H 112 H 111 H Respiratory Rate Blood Pressure O2 Sat by Pulse 99 98 99 Oximetry 09/15/21 09/15/21 15:18 15:23 Temperature Pulse Rate 109 H 139 H Respiratory Rate Blood Pressure O2 Sat by Pulse 100 100 Oximetry - Labs Labs: Abnormal Labs 09/15/21 09/15/21 08:39 11:16 RBC 3.44 L MCHC 35 H [place] % (Auto) 8.2 H [place] # (Auto) 0.9 H Seg Neutrophils % 75.0 H Seg Neutrophils # 7.8 H Urine WBC (Auto) 66.0 H U Epithel Cells (Auto) 15.0 H Laboratory Results - last 24 hr 09/15/21 09/15/21 09/15/21 08:39 11:16 11:16 WBC 10.4 RBC 3.44 L Hgb 11.1 Hct 31.8 MCV 92 MCH 32 MCHC 35 H RDW 13.2 Plt Count 198 Lymph % (Auto) 16.4 [place] % (Auto) 8.2 H Eos % (Auto) 0.3 Baso % (Auto) 0.1 Lymph # (Auto) 1.7 [place] # (Auto) 0.9 H Eos # (Auto) 0.0 Baso # (Auto) 0.0 Seg Neutrophils % 75.0 H Seg Neutrophils # 7.8 H Urine Color Yellow Urine Turbidity Slightly-cloudy Urine pH 6.0 Ur Specific [place] 1.012 Urine Protein <15 mg/dl Urine Glucose (UA) Neg Urine Ketones Tr Urine Blood Sm Urine Nitrite Neg Urine Bilirubin Neg Urine Urobilinogen < 2.0 Ur Leukocyte Esterase Lg Urine WBC (Auto) 66.0 H Urine RBC (Auto) 20.0 U Epithel Cells (Auto) 15.0 H Urine Mucus Few Urine Yeast (Budding) Few Urine Opiates Screen Urine Methadone Screen Ur Barbiturates Screen Ur Phencyclidine Scrn Ur Amphetamines Screen U Benzodiazepines Scrn Urine Cocaine Screen U Marijuana (THC) Screen Drugs of Abuse Note Blood Type O POSITIVE Antibody Screen Negative 09/15/21 11:16 WBC RBC Hgb Hct MCV MCH MCHC RDW Plt Count Lymph % (Auto) [place] % (Auto) Eos % (Auto) Baso % (Auto) Lymph # (Auto) [place] # (Auto) Eos # (Auto) Baso # (Auto) Seg Neutrophils % Seg Neutrophils # Urine Color Urine Turbidity Urine pH Ur Specific [place] Urine Protein Urine Glucose (UA) Urine Ketones Urine Blood Urine Nitrite Urine Bilirubin Urine Urobilinogen Ur Leukocyte Esterase Urine WBC (Auto) Urine RBC (Auto) U Epithel Cells (Auto) Urine Mucus Urine Yeast (Budding) Urine Opiates Screen Negative Urine Methadone Screen Negative Ur Barbiturates Screen Negative Ur Phencyclidine Scrn Negative Ur Amphetamines Screen Negative U Benzodiazepines Scrn Negative Urine Cocaine Screen Negative U Marijuana (THC) Screen Positive Drugs of Abuse Note Disclamer Blood Type Antibody Screen
[2021-09-15] MEDS ORDERED: HYDROmorphone/NS 6 MG/30 ML PCA INJ IV SCH (17:00)
[2021-09-15] MEDS ORDERED: diphenhydrAMINE 25 MG CAP PO PRN ×2 (17:00→22:39)
[2021-09-15] MEDS ORDERED: NALOXONE 0.4 MG/1 ML INJ IV PRN (17:00)
[2021-09-15] MEDS ORDERED: METOCLOPRAMIDE 10 MG/2 ML INJ IV PRN (17:00)
[2021-09-15] MEDS ORDERED: PROMETHAZINE 25 MG RECT SUPP PR PRN ×2 (17:00→22:39)
[2021-09-15] MEDS: ONDANSETRON 4 MG/2 ML INJ IV PRN (17:12)
[2021-09-15] MEDS ORDERED: miSOPROStol 200 MCG TAB ONE (19:02)
[2021-09-15] MEDS ORDERED: OXYTOCIN DRIP 30,000 MILLIUNITS/500 ML BAG IV ONE (19:02)
[2021-09-15] MEDS ORDERED: LACTATED RINGERS 1,000 ML ONE ×2 (19:16→19:29)
[2021-09-15] MEDS ORDERED: ePHEDrine SULFATE 50 MG/1 ML INJ IV PRN (20:01)
[2021-09-15] MEDS ORDERED: NALOXONE 2 MG/2 ML INJ IV PRN (20:01)
--- NOTE | 2021-09-15 20:50 | Anesthesia Consultation ---
Anesthesia Consult and Med Hx Date of service: 09/15/21 - Airway Anesthetic Teeth Evaluation: Poor ROM Head & Neck: Adequate Mental/Hyoid Distance: Adequate Mallampati Class: Class II Intubation Access Assessment: Probably Good - Pulmonary Exam CTA: Yes - Cardiac Exam Cardiac Exam: RRR - Pre-Operative Health Status ASA Pre-Surgery Classification: ASA2 Proposed Anesthetic Plan: Epidural - Pre-Anesthesia Comment Pre-Anesthesia Comments: T&A , Teeth extractions - No Anesthesia Complications - Pulmonary Hx Smoking: No Hx Asthma: No - Cardiovascular System Hx Hypertension: No - Central Nervous System Hx Seizures: No Hx Psychiatric Problems: Yes (anxiety) - Endocrine Hx Renal Disease: No Hx Hypothyroidism: No Hx Hyperthyroidism: No - Hematic Hx Anemia: No Hx Sickle Cell Disease: No - Other Systems Hx Alcohol Use: No Hx Substance Use: Yes (Marijuanna) Hx Obesity: Yes
--- NOTE | 2021-09-15 20:51 | Progress Note ---
Labor Epidural - Labor Epidural Start Time: 20:20 Stop Time: 20:27 Performed by:: DANIEL STUART Procedure: Patient is requesting epidural for labor pain. H&P and labs reviewed. Procedure explained, questions answered, consent obtained. Patient placed in sitting position with monitors applied. Timeout performed immediately before start of procedure. Prep/drape in usual sterile fashion. Skin localized 3 mL 1% lidocaine at L[3]-L[4] interspace. 17-gauge Touhy epidural needle advanced to DE with saline at [8] cm. No blood/CSF noted via epidural needle. Epidural catheter advanced to [12] cm. Negative aspiration for blood and CSF via catheter, negative response to test dose 3 ml 1.5% lidocaine w/ Epi. Sterile dressing applied followed by tape reinforcement. Patient tolerated procedure well. No immediate complications noted.
[2021-09-15] MEDS ORDERED: fentaNYL-BUPIV 2 MCG/ML-0.125% 200 MCG/100 ML BAG EPIDURAL SCH (21:00)
[2021-09-15] MEDS ORDERED: OXYTOCIN DRIP 30 UNITS/500 ML BAG IV SCH (22:00)
[2021-09-15] MEDS ORDERED: metroNIDAZOLE 500 MG TAB PO SCH (22:00)
[2021-09-15] MEDS ORDERED: METHYLERGONOVINE MALEATE 0.2 MG/ML VIAL IM PRN (22:39)
[2021-09-15] MEDS ORDERED: oxyCODONE /ACETAMINOPHEN 5-325MG TAB PO PRN (22:39)
[2021-09-15] MEDS ORDERED: MAGNESIUM HYDROXIDE (MOM) ORAL LIQD UDC PO PRN (22:39)
[2021-09-15] MEDS ORDERED: HYDROcodone/ACETAMINOPHEN 5-325 MG TAB PO PRN (22:39)
[2021-09-15] MEDS ORDERED: LANOLIN/ZINC/DIMETHICONE (LANSINOH) 7 GM TP PRN (22:39)
[2021-09-15] MEDS ORDERED: ONDANSETRON 4 MG/2 ML INJ IV PRN (22:39)
[2021-09-15] MEDS ORDERED: WITCH HAZEL/ GLYCERIN PAD TP PRN (22:39)
[2021-09-15] MEDS ORDERED: PROMETHAZINE 25 MG TAB PO PRN (22:39)
[2021-09-15] MEDS ORDERED: KETOROLAC 30 MG/1 ML INJ IV PRN (22:39)
[2021-09-15] MEDS ORDERED: METHYLERGONOVINE MALEATE 0.2 MG/ML VIAL IM ONE (22:42)
--- NOTE | 2021-09-15 22:45 | Procedure Note ---
OB Delivery Note - Delivery Date of Delivery: 09/15/21 Surgeon: INGA ALCALA Estimated blood loss: 300cc - Vaginal Intrapartum events: foul smelling fluid Delivery augmentation: pitocin Route of delivery: Delivery placenta: manual Delivery cord: 3 umbilical vessels Delivery laceration: none Anesthesia: epidural Delivery comments: SROM delivery of non viable fetus Placenta delivered manually Methergine 0.2mg IMx1 dose no lacerations EBL 300ml Swapna Alcala MD
--- NOTE | 2021-09-15 22:53 | Discharge Summary ---
Providers - Providers Date of Admission: 09/15/21 08:21 Date of discharge: 09/16/21 Attending physician: INGA ALCALA MD Primary care physician: INGA ALCAAL MD Hospitalization Reason for admission: other ( labor ) Condition at discharge: Stable Disposition: 01 HOME / SELF CARE / HOMELESS Plan - Discharge Medications Prescriptions: Ibuprofen [Motrin] 600 mg PO Q8H PRN #60 tablet PRN Reason: Pain - Provider Discharge Summary Activity: no sex for 6 weeks Diet: routine Instructions: routine Additional instructions: [] Smoking cessation referral if applicable(refer to patient education folder for contact #) [] Refer to [facility]'s [facility] Booklet Call your doctor immediately for: * Fever > 100.5 * Heavy vaginal bleeding ( >1 pad per hour) * Severe persistent headache * Shortness of breath * Reddened, hot, painful area to leg or breast * Drainage or odor from incision. * Keep incision clean and dry at all times and follow doctor's instructions regarding bathing/showering - Follow up plan Follow up: INGA ALCALA MD [Primary Care Provider] - 7 Days
[2021-09-16] MEDS: ONDANSETRON 4 MG/2 ML INJ IV PRN (00:57)
[2021-09-16] MEDS: metroNIDAZOLE 500 MG TAB PO SCH ×2 (00:57→09:40)
[2021-09-16] MEDS: DOCUSATE SODIUM 100 MG CAP PO SCH (09:39)
[2021-09-16] MEDS: SENNOSIDES/DOCUSATE SODIUM 8.6/50 MG TAB PO SCH ×2 (09:39→12:51)
[2021-09-16] MEDS: PRENATAL VIT27-FE FUMARATE-FOLIC ACID VIT TAB PO SCH ×2 (09:40→12:52)
[2021-09-16] MEDS ORDERED: PRENATAL VIT27-FE FUMARATE-FOLIC ACID VIT TAB PO SCH (10:00)
[2021-09-16] MEDS: AZITHROMYCIN/NS 500 MG/250 ML 500 MG/250 ML BAG IV SCH ×2 (11:00→12:58)
[2021-09-16] MEDS: IBUPROFEN 600 MG TAB PO SCH ×3 (12:00→13:01)
--- NOTE | 2021-09-16 12:08 | Post Anesthesia Evaluation ---
- Post Anesthesia Evaluation Patient Participated: Yes Airway Patent: Yes Stable Respiratory Function: Yes Nausea/Vomiting: No Temp > 96.8F: Yes Pain Manageable: Yes Adequeate Hydration: Yes Anesthesia Complications: No Block Receding Appropriately: Yes Patient on Ventilator: No
[2021-09-16 12:21] VITALS: BP 112/70
[2021-09-16 14:00] LABS: Hematocrit 29.5 % (30.3-42.9); Hemoglobin 9.9 gm/dl (10.1-14.3)
--- NOTE | 2021-09-17 06:58 | Ultrasound Report ---
US OB LIMITED INDICATION / CLINICAL INFORMATION: PTL. COMPARISON: 06/15/21. FINDINGS: There is a single intrauterine with an estimated sonographic gestational age of 20 weeks an d an EDC of 02/02/22. Clinical dates are 20 weeks 3 days. presentation is breech. Amniotic flui d volume is normal with an VIOLET of 12.2 cm. The placenta is located posteriorly, is grade 1 and is lyndon e of the os. The heart rate is 145 bpm. The cervix measures 4.1 cm in length and the internal o s is closed. Neither ovary is identified. IMPRESSION: Single viable 20 week intrauterine without complication. Signer Name: Leobardo De León MD Signed: 09/17/2021 6:54 AM Workstation Name: [id number]
== END 2021-09-16 14:15 | disposition home or self-care (01) | DRG 775 ==
LOC: TRG 08:20 → LD 08:21 → APU 08:22 → TRG 10:57 → OB 09-16 01:20
PROVIDERS: ADMIT Obstetrics & Gynecology; ATTEND Obstetrics & Gynecology
PROC: 10E0XZZ Delivery of Products of Conception, External Approach (ICD-10-PCS; principal; 2021-09-15)
PROC: 3E0R3BZ Introduction of Anesthetic Agent into Spinal Canal, Percutaneous Approach (ICD-10-PCS; 2021-09-15)
PROC: 00HU33Z Insertion of Infusion Device into Spinal Canal, Percutaneous Approach (ICD-10-PCS; 2021-09-15)
DX: O60.12X0 Preterm labor second trimester with preterm delivery second trimester, not applicable or unspecified (principal); Z37.1 Single stillbirth; Z3A.21 21 weeks gestation of pregnancy; Z20.822 Contact with and (suspected) exposure to COVID-19
CPT/HCPCS: 36415; 76815; 76816; 80307; 81001; 85014; 85018; 85025; 86850; 86900; 86901; 87086; 87116; 88305; 96360; 96372; 96374; G0378; J3490; J7502; J0456; J0690; J2210; J2405; J2590; J3010; J3105; J7120; U0003